=== PATIENT | male | born 1955 | race Two or more races ===

== ENCOUNTER 2019-04-01 20:20 | Inpatient (IN) | payer MEDICAID ==
[~2019-04-01] VITALS: Ht 167.6 cm; Wt 73.0 kg
[2019-04-01] MEDS ORDERED: Thiamine 100 MG/ML VIAL ONE (20:50)
[2019-04-01] MEDS ORDERED: LORAZEPAM INJ 2 MG/ML VIAL ONE (20:51)
[2019-04-01 21:00] LABS: BASOPHILS # (AUTO) 0.1 /CMM (0.0-0.2); BASOPHILS % (AUTO) 1.1 % (0.0-2.0); EOSINOPHILS % (AUTO) 0.1 % (0.0-6.0); HEMATOCRIT 42 % (39-51); HEMOGLOBIN 14.5 g/dL (13.5-17.5); LYMPHOCYTES # (AUTO) 1.1 /CMM (0.8-4.8); LYMPHOCYTES % (AUTO) 19.8 % (20.0-44.0); MEAN CORPUSCULAR HGB CONC 34 g/dl (31.0-36.0); MEAN CORPUSCULAR VOLUME 82 fL (80-96); MONOCYTES # (AUTO) 0.3 /CMM (0.1-1.30); MONOCYTES % (AUTO) 5.6 % (2.0-12.0); NEUTROPHILS # (AUTO) 4.1 /CMM (1.8-8.9); NEUTROPHILS % (AUTO) 73.4 % (43.0-81.0); PLATELET COUNT (AUTO) 95 /CMM (150-450); WHITE BLOOD COUNT (AUTO) 5.6 K/uL (4.3-11.0)
[2019-04-01] MEDS ORDERED: IV NS 0.9% 1,000 ML BAG IV ONE (21:00)
[2019-04-01] MEDS ORDERED: LORAZEPAM INJ 2 MG/ML VIAL IVP ONE (21:00)
[2019-04-01] MEDS ORDERED: Thiamine 100 MG in IV D5W 50 ML IV SCH (21:00)
--- NOTE | 2019-04-01 21:06 | NUR ---
BIBRA39 FROM HOME FOR WITNESSED SEIZURE BY FAMILY, POST ICTAL, CONFUSED, +ORAL TRAUMA, R NOSTRIL BLEEDING NOTED. BG 166 PER EMS. PT RR EVEN & UNLABORED. PT SEEN & EVAL'D BY DR. TY. MEDICATED ORDERED. PLACED ON FARMWORKER FIELD CROP, NSR. WILL CONT TO MONITOR. SISTER @ BS.
[2019-04-01 21:13] LABS: ALANINE AMINOTRANSFERASE 132 U/L (12-78); ALBUMIN 3.8 g/dL (3.4-5.0); ALKALINE PHOSPHATASE 167 U/L (46-116); ASPARTATE AMINOTRANSFERASE 263 U/L (15-37); BILIRUBIN,DIRECT 0.8 mg/dL (0.0-0.2); CALCIUM, SERUM 7.6 mg/dL (8.5-10.1); CARBON DIOXIDE 23 mmol/L (21-32); CREATININE 1.3 mg/dL (0.6-1.3); GLUCOSE 211 mg/dL (74-106); POTASSIUM 3.4 mmol/L (3.5-5.1); TOTAL PROTEIN, SERUM 7.2 g/dL (6.4-8.2); UREA NITROGEN, BLOOD 6 mg/dL (7-18)
[2019-04-01 21:17] LABS: CHLORIDE 71 mmol/L (98-107); SODIUM SERUM 108 mmol/L (136-145)
[2019-04-01 21:18] LABS: ALCOHOL, BLOOD < 3 mg/dL (0-0)
[2019-04-01 21:37] LABS: BAND % (MANUAL) 12 % (0.0-5.0); BASOPHILS % (MANUAL) 2 % (0.0-2.0); LYMPHOCYTES % (MANUAL) 23 % (16-48); MONOCYTES % (MANUAL) 7 % (0-11.0); NEUTROPHILS % (MANUAL) 56 (42-76)
[2019-04-01] MEDS ORDERED: HYDROCODONE/APAP 5/325MG 1 EACH TABLET PO PRN (23:00)
[2019-04-01] MEDS ORDERED: ONDANSETRON HCL/PF 4 MG/2 ML VIAL IVP PRN (23:00)
[2019-04-01] MEDS ORDERED: Z GUARD REMEDY 2 OZ OINT TP PRN (23:00)
[2019-04-01] MEDS ORDERED: MAGNESIUM HYDROXIDE 30 ML UDC PO PRN (23:00)
[2019-04-01] MEDS ORDERED: ACETAMINOPHEN 325 MG TABLET PO PRN (23:00)
--- NOTE | 2019-04-01 23:16 | NUR ---
PT AAOX1, DENIES CP, SOB, DIZZINESS, N/V @ THIS TIME. ON SZ PRECAUTION. NAD NOTED @ THIS TIME. WILL CONT TO MONITOR.
--- NOTE | 2019-04-01 23:25 | NUR ---
REPORT GIVEN TO JORGE ALBERTO CLIFTON FOR BLAYNE
[2019-04-01 23:47] VITALS: BP 165/115
--- NOTE | 2019-04-01 23:50 | NUR ---
SERVER SOFTWARE ENGINEER RCD PT FROM ER SOILED IN URINE; PROVIDED KAR CARE. ST ON MONITOR. ON ROOM AIR. DX SEIZURE; SEIZURE PADS PLACED. CONTINUE TO MONITOR.
[2019-04-01] MEDS: IV NS 0.9% 1,000 ML IV PRN (23:58)
[2019-04-02] VITALS (26 sets, daily range): BP systolic 70–181; BP diastolic 33–99
--- NOTE | 2019-04-02 00:10 | NUR ---
PARTS PICKERSECOND BAKER AT BEDSIDE.
[2019-04-02 04:53] LABS: BASOPHILS % (AUTO) 0.3 % (0.0-2.0); EOSINOPHILS % (AUTO) 0.1 % (0.0-6.0); HEMATOCRIT 43 % (39-51); HEMOGLOBIN 15.1 g/dL (13.5-17.5); LYMPHOCYTES % (AUTO) 13.6 % (20.0-44.0); MEAN CORPUSCULAR HGB CONC 35 g/dl (31.0-36.0); MEAN CORPUSCULAR VOLUME 80 fL (80-96); MONOCYTES # (AUTO) 0.3 /CMM (0.1-1.30); MONOCYTES % (AUTO) 4.8 % (2.0-12.0); NEUTROPHILS # (AUTO) 5.8 /CMM (1.8-8.9); NEUTROPHILS % (AUTO) 81.2 % (43.0-81.0); PLATELET COUNT (AUTO) 73 /CMM (150-450); RED BLOOD CELL COUNT(AUTO) 5.37 MIL/uL (4.5-6.0); WHITE BLOOD COUNT (AUTO) 7.2 K/uL (4.3-11.0)
[2019-04-02 05:10] LABS: CALCIUM, SERUM 7.6 mg/dL (8.5-10.1); CREATININE 0.9 mg/dL (0.6-1.3); MAGNESIUM 1.3 mg/dL (1.8-2.4); PHOSPHORUS 2.8 mg/dL (2.5-4.9); POTASSIUM 3.1 mmol/L (3.5-5.1)
[2019-04-02 05:13] LABS: THYROID STIMULATING HORMONE 0.553 uIU/mL (0.358-3.74)
--- NOTE | 2019-04-02 06:45 | NUR ---
CHIEF ESTIMATOR NO SEIZURE ACTIVITY NOTED. PT REMAINED CONFUSED THROUGHOUT SHIFT.
[2019-04-02] MEDS: CHLORDIAZEPOXIDE HCL 25 MG CAPSULE PO SCH ×2 (08:04→16:55)
[2019-04-02] MEDS: FOLIC ACID 1 MG TABLET PO SCH (08:04)
--- NOTE | 2019-04-02 08:17 | NUR ---
received pt from retail shift leader, alert, follows commands, Faroese speaker, ST, RA sat well, no seizure activity, tolerates diet, v/s stable, no pain, pt turns and repositions by himself.
--- NOTE | 2019-04-02 10:00 | NUR ---
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 no family at bedside. left message to his brother.
[2019-04-02] MEDS: POTASSIUM CHLORIDE 20 MEQ TAB.PRT.SR PO SCH ×2 (11:23→12:41)
[2019-04-02] MEDS: DESMOPRESSIN 4 MCG/ML AMPUL SQ SCH ×2 (11:34→16:55)
--- NOTE | 2019-04-02 11:47 | NUR ---
Social service consult requested by Dr. Veliz for alcohol abuse. Pt. is a 63 year old male who was admitted to [facility] ICU for seizures and Hyponatremia. JASWINDER met with the pt. and his sister bedside. Pt. is alert and oriented x 1. Pt. appears confused. Pt's sister informed JASWINDER that pt. resides with his brother Jihan at [address] [place] [address] in [facility]. Pt. is an alcoholic and has been for several years. Pt. is a binge drinker. Per sister, pt. will start with drinking beer and then drink vodka. Pt. has been binge drinking for the past 3 weeks. Pt' s last drink was four days ago. Pt. has stayed sober for 5 years, 8 years ago. Pt. has no history of attending an alcohol rehab program. Pt. was seen at [facility] 4 days ago in the ED due to abdominal pain but was sent home. JASWINDER gave pt's sister the following list of alcohol rehabilitation programs: [facility], ; [facility]stance Abuse [facility]line and [facility] . No other social service needs are requested at this time. SW is available, if needed.
[2019-04-02] MEDS: Magnesium 1GM/D5W 100ML PREMIX 100 ML IV SCH ×4 (11:52→15:05)
[2019-04-02] MEDS: IV NS 0.9% 1,000 ML IV PRN (13:19)
[2019-04-02] MEDS: MAG HYDROX/AL HYDROX/SIMETH 30 ML UDC PO PRN (13:55)
[2019-04-02] MEDS: IV Sodium Chloride 3% 500 ML 500 ML IV PRN (14:53)
[2019-04-02 15:35] LABS: CREATININE 1.1 mg/dL (0.6-1.3); POTASSIUM 3.1 mmol/L (3.5-5.1)
--- NOTE | 2019-04-02 16:05 | NUR ---
pt is resting in the bed, alert, confused at times, ST, RA, on 3% NS at 30cc/hr, tolerates diet, urinates in diaper, v/s stable, no pain, pt cleaned, changed and repositioned.
[2019-04-02] MEDS: LORAZEPAM INJ 2 MG/ML VIAL IV PRN (16:55)
[2019-04-02 18:28] LABS: CALCIUM, SERUM 6.9 mg/dL (8.5-10.1); CREATININE 1.1 mg/dL (0.6-1.3); POTASSIUM 3.4 mmol/L (3.5-5.1)
--- NOTE | 2019-04-02 19:30 | NUR ---
FINDING FASTENER RCD PT W/DX SEIZURE; PT IS A/O x1 VERY RESTLESS ATTEMPTING TO GET OUT BED. NSR ON MONITOR. SISTER AT BEDSIDE.
--- NOTE | 2019-04-02 20:00 | NUR ---
FACILITIES PLANNER PTS SISTER CAME OUT OF PT ROOM SCREAMING WHERE IS THE PTS NURSE. NO ONE HAS BEEN IN THE ROOM FOR THE PAST HOUR. SISTER SEEMED OVERWHELMED AND EXPRESSED FRUSTRATION THAT THE PT WAS SUCH MESS. SISTER WAS TOLD SHE COULD GO HOME AND NURSING WOULD MONITOR PT. NURSING STAFF HAD BEEN PREVIOUSLY BEEN IN ROOM 3 TIMES AND SISTER WAS SLEEPING WHILE PTS LEGS WERE DANGLING FROM THE BED. CONTINUE TO MONITOR.
--- NOTE | 2019-04-02 20:15 | NUR ---
SPOOL CLEANER HAND PT RESTLESS NOTED WITH INCREASED STRENGTH SITTING UP IN BED AND STATING HE NEEDS TO LEAVE. LOOKING FOR HIS CLOTHES. REORIENTED PT. NURSING AT BEDSIDE AT THIS TIME.
--- NOTE | 2019-04-02 20:30 | NUR ---
BEAD INSPECTOR PT CONTINUES TO BE RESTLESS ATTEMPTING TO GET OUT OF BED. CONTINUE TO MONITOR. NURSING REMAINS AT BEDSIDE. ALL SAFETY MEASURES IN PLACE. BED ALARM ON.
--- NOTE | 2019-04-02 20:45 | NUR ---
PIECE DYEING MACHINE TENDER PT CONTINUES TO BE RESTLESS ATTEMPTING TO GET OUT OF BED. CONTINUE TO MONITOR. NURSING REMAINS AT BEDSIDE. ALL SAFETY MEASURES IN PLACE. BED ALARM ON.
--- NOTE | 2019-04-02 20:55 | NUR ---
CUFF SETTER PT CONTINUES TO BE RESTLESS AND ATTEMPTING TO GET OUT OF BED. MULTIPLE ATTEMPTS TO REORIENT PT; BLSW RESTRAINTS PLACED AT THIS TIME TO PREVENT PT FROM HURTING HIMSELF OR PULLING OUT ANY NECESSARY LINES.
[2019-04-02] MEDS ORDERED: Thiamine 100 MG in IV D5W 50 ML IV SCH (21:00)
--- NOTE | 2019-04-02 21:00 | NUR ---
PRODUCTION BOW MAKER BROTHER AT BEDSIDE; UPDATED ON PLAN OF CARE AND THE NEED FOR BLSW RESTRAINTS. FAMILY VERBALIZED UNDERSTANDING. CONTINUE TO MONITOR.
--- NOTE | 2019-04-02 22:58 | NUR ---
AIRPORT UTILITY WORKER PT SLEEPING; BROTHER REMAINS AT BEDSIDE.
[2019-04-03] VITALS (26 sets, daily range): BP systolic 108–179; BP diastolic 41–101
[2019-04-03] MEDS: DESMOPRESSIN 4 MCG/ML AMPUL SQ SCH ×3 (00:26→17:24)
[2019-04-03] MEDS: LORAZEPAM INJ 2 MG/ML VIAL IV PRN ×2 (00:43→04:44)
--- NOTE | 2019-04-03 00:45 | NUR ---
WORKERS COMPENSATION ADMINISTRATOR PT PULLED OUT IV DESPITE BEING ON RESTRAINTS. FAMILY REQUESTED PT BE GIVEN SOMETHING TO HELP HIM RELAX. ATIVAN 1 MG IVP GIVEN. CONTINUE TO MONITOR.
--- NOTE | 2019-04-03 01:43 | NUR ---
RAILROAD SWITCHMAN PT DISPLAYING AGGRESSIVE BEHAVIOR AT THIS TIME. MAKING FISTS TOWARDS STAFF. ATIVAN INEFFECTIVE. CONTINUE TO MONITOR.
--- NOTE | 2019-04-03 03:55 | NUR ---
SALES/MARKETING PT CONTINUES TO DISPLAY AGGRESSIVE BEHAVIOR. MULTIPLE ATTEMPTS TO GET OUT OF BED. CONSTANTLY REMOVING SP02 SENSOR. RCD ORDER FOR 1:1 SITTER. CONTINUE TO MONITOR.
[2019-04-03 04:25] LABS: BASOPHILS % (AUTO) 0.5 % (0.0-2.0); EOSINOPHILS % (AUTO) 0.6 % (0.0-6.0); HEMATOCRIT 39 % (39-51); HEMOGLOBIN 13.1 g/dL (13.5-17.5); LYMPHOCYTES # (AUTO) 1.4 /CMM (0.8-4.8); LYMPHOCYTES % (AUTO) 22.5 % (20.0-44.0); MEAN CORPUSCULAR HGB CONC 34 g/dl (31.0-36.0); MEAN CORPUSCULAR VOLUME 81 fL (80-96); MONOCYTES # (AUTO) 0.3 /CMM (0.1-1.30); MONOCYTES % (AUTO) 5.6 % (2.0-12.0); NEUTROPHILS # (AUTO) 4.3 /CMM (1.8-8.9); NEUTROPHILS % (AUTO) 70.8 % (43.0-81.0); PLATELET COUNT (AUTO) 60 /CMM (150-450); WHITE BLOOD COUNT (AUTO) 6.1 K/uL (4.3-11.0)
[2019-04-03 04:45] LABS: CALCIUM, SERUM 7.2 mg/dL (8.5-10.1); CREATININE 0.9 mg/dL (0.6-1.3); PHOSPHORUS 1.4 mg/dL (2.5-4.9); POTASSIUM 3.2 mmol/L (3.5-5.1)
[2019-04-03 05:04] LABS: THYROID STIMULATING HORMONE 0.743 uIU/mL (0.358-3.74); URIC ACID 3.9 mg/dL (2.6-7.2)
[2019-04-03 07:18] LABS: LYMPHOCYTES % (MANUAL) 27 % (16-48); MONOCYTES % (MANUAL) 3 % (0-11.0); NEUTROPHILS % (MANUAL) 70 (42-76)
--- NOTE | 2019-04-03 08:15 | NUR ---
received pt from shift mechanic, alert, confused, aggressive at times, restless , SR, RA, diaper on, tolerates diet, sitter at the bedside, on 3% NS, v/s stable, no pain, seen by Jean CORREA.
[2019-04-03] MEDS: CHLORDIAZEPOXIDE HCL 25 MG CAPSULE PO SCH ×2 (09:04→17:25)
[2019-04-03] MEDS: FOLIC ACID 1 MG TABLET PO SCH (09:04)
[2019-04-03] MEDS: IV Sodium Chloride 3% 500 ML 500 ML IV PRN (09:04)
[2019-04-03] MEDS: POTASSIUM CHLORIDE 20 MEQ TAB.PRT.SR PO SCH ×2 (11:24→12:33)
[2019-04-03] MEDS ORDERED: K PHOS NEUTRAL 250 MG TABLET PO ONE (14:00)
--- NOTE | 2019-04-03 16:27 | NUR ---
pt is resting in the bed, alert, confused at times, SR, RA, on 3% NS, v/s stable, no pain, pt cleaned and changed, sitter at the bedside.
[2019-04-03 18:46] LABS: CALCIUM, SERUM 7.2 mg/dL (8.5-10.1); CREATININE 0.9 mg/dL (0.6-1.3); POTASSIUM 3.4 mmol/L (3.5-5.1)
[2019-04-03 18:50] LABS: APPEARANCE,URINE CLEAR (CLEAR); BILIRUBIN,URINE SMALL (NEGATIVE); BLOOD, URINE MODERATE Ery/uL (NEGATIVE); COLOR,URINE YELLOW (YELLOW); KETONES,URINE TRACE (NEGATIVE); LEUKOCYTE ESTERASE ,URINE NEGATIVE (NEGATIVE); NITRITE, URINE NEGATIVE (NEGATIVE); PROTEIN,URINE TRACE mg/dl (NEGATIVE); UGLUCOSE NEGATIVE (NEGATIVE)
[2019-04-03 19:05] LABS: URINE SODIUM, RANDOM 67 mmol/l (40-220)
[2019-04-03 19:06] LABS: BACTERIA,URINE Few /HPF (None Seen); SQUAMOUS EPITHELIAL CELL,UR Few /HPF (None Seen); TRIPLE PHOSPHATE CRYSTAL,UR Few /HPF (None Seen); WBC,URINE 0-2 /HPF (0-3)
[2019-04-03 19:14] LABS: OSMOLALITY,URINE 414 mOS/kg (340-1090)
--- NOTE | 2019-04-03 19:30 | NUR ---
ASSEMBLY WORKER RCD PT W/DX SEIZURE; PT IS A/O x2. ON ROOM AIR. NO DISTRESS NOTED AT THIS TIME. NSR ON MONITOR. 1:1 SITTER AT BEDSIDE FOR SAFETY.
[2019-04-03] MEDS: THIAMINE HCL 100 MG TABLET PO SCH (21:51)
[2019-04-04] VITALS (24 sets, daily range): BP systolic 94–154; BP diastolic 58–102
[2019-04-04] MEDS: IV Sodium Chloride 3% 500 ML 500 ML IV PRN ×2 (01:59→16:29)
--- NOTE | 2019-04-04 04:00 | NUR ---
ACQUISITION ADVISOR NOTED CHANGE IN PT BEHAVIOR; AGITATED AND ATTEMPTING TO GET OUT OF BED. NOT FOLLOWING DIRECTIONS AT THIS TIME. SITTER REMAINS AT BEDSIDE.
[2019-04-04] MEDS: LORAZEPAM INJ 2 MG/ML VIAL IV PRN (04:44)
--- NOTE | 2019-04-04 04:45 | NUR ---
ENAMEL BURNER PT W/INCREASED AGITATION DESPITE FREQUENT REORIENTATION PT ATTEMPTING TO GET OUT OF BED AND ATTEMPTING TO PULL OUT NECESSARY LINES. ATIVAN 1 MG IVP GIVEN AT THIS TIME. CONTINUE TO MONITOR.
[2019-04-04 05:01] LABS: BASOPHILS % (AUTO) 0.4 % (0.0-2.0); EOSINOPHILS % (AUTO) 1.6 % (0.0-6.0); HEMATOCRIT 35 % (39-51); HEMOGLOBIN 11.9 g/dL (13.5-17.5); LYMPHOCYTES # (AUTO) 1.2 /CMM (0.8-4.8); LYMPHOCYTES % (AUTO) 28.5 % (20.0-44.0); MEAN CORPUSCULAR HGB CONC 34 g/dl (31.0-36.0); MEAN CORPUSCULAR VOLUME 81 fL (80-96); MONOCYTES # (AUTO) 0.2 /CMM (0.1-1.30); MONOCYTES % (AUTO) 5.6 % (2.0-12.0); NEUTROPHILS # (AUTO) 2.7 /CMM (1.8-8.9); NEUTROPHILS % (AUTO) 63.9 % (43.0-81.0); PLATELET COUNT (AUTO) 62 /CMM (150-450); RED BLOOD CELL COUNT(AUTO) 4.31 MIL/uL (4.5-6.0); WHITE BLOOD COUNT (AUTO) 4.2 K/uL (4.3-11.0)
[2019-04-04 05:24] LABS: CALCIUM, SERUM 7.4 mg/dL (8.5-10.1); CREATININE 0.8 mg/dL (0.6-1.3); PHOSPHORUS 1.9 mg/dL (2.5-4.9); POTASSIUM 2.9 mmol/L (3.5-5.1)
[2019-04-04 05:43] LABS: LYMPHOCYTES % (MANUAL) 24 % (16-48); MONOCYTES % (MANUAL) 4 % (0-11.0); NEUTROPHILS % (MANUAL) 72 (42-76)
--- NOTE | 2019-04-04 05:54 | NUR ---
INCINERATOR PLANT GENERAL SUPERVISOR PT REMAINS AGITATED LOOKING FOR A BEER. UNABLE TO REORIENT PT AT THIS TIME. SITTER REMAINS AT BEDSIDE. VSS.
[2019-04-04] MEDS: DESMOPRESSIN 4 MCG/ML AMPUL SQ SCH ×2 (06:18→17:01)
[2019-04-04] MEDS: FOLIC ACID 1 MG TABLET PO SCH (08:05)
[2019-04-04] MEDS: CHLORDIAZEPOXIDE HCL 25 MG CAPSULE PO SCH ×2 (08:05→16:39)
[2019-04-04] MEDS: THIAMINE HCL 100 MG TABLET PO SCH (08:05)
--- NOTE | 2019-04-04 08:28 | NUR ---
received pt from assistant casino shift manager, alert, confused and restless at times, tries to get out of bed, sitter at the bedside, SR, RA, on 3% NS, tolerates diet, urinates in urinal, v/s stable, no pain, pt turns and repositions by himself.
[2019-04-04] MEDS ORDERED: K PHOS NEUTRAL 250 MG TABLET PO ONE (10:00)
[2019-04-04] MEDS ORDERED: POTASSIUM CHLORIDE 20 MEQ TAB.PRT.SR PO SCH (10:00)
--- NOTE | 2019-04-04 16:14 | NUR ---
pt is resting in the bed, alert, follows commands, SR, RA, on 3% NS, v/s stable, no pain, pt cleaned and changed.
[2019-04-04 18:19] LABS: CALCIUM, SERUM 7.4 mg/dL (8.5-10.1); CREATININE 0.8 mg/dL (0.6-1.3); POTASSIUM 3.3 mmol/L (3.5-5.1)
[2019-04-04] MEDS: ZOLPIDEM TARTRATE 5 MG TABLET PO PRN (23:00)
[2019-04-05] VITALS (20 sets, daily range): BP systolic 90–154; BP diastolic 51–94
[2019-04-05 04:27] LABS: BASOPHILS % (AUTO) 0.8 % (0.0-2.0); EOSINOPHILS % (AUTO) 3.4 % (0.0-6.0); HEMATOCRIT 31 % (39-51); HEMOGLOBIN 10.6 g/dL (13.5-17.5); LYMPHOCYTES # (AUTO) 1.3 /CMM (0.8-4.8); LYMPHOCYTES % (AUTO) 34.8 % (20.0-44.0); MEAN CORPUSCULAR HGB CONC 34 g/dl (31.0-36.0); MEAN CORPUSCULAR VOLUME 82 fL (80-96); MONOCYTES # (AUTO) 0.3 /CMM (0.1-1.30); MONOCYTES % (AUTO) 8.8 % (2.0-12.0); NEUTROPHILS % (AUTO) 52.2 % (43.0-81.0); PLATELET COUNT (AUTO) 73 /CMM (150-450); WHITE BLOOD COUNT (AUTO) 3.8 K/uL (4.3-11.0)
[2019-04-05 05:12] LABS: CALCIUM, SERUM 7.6 mg/dL (8.5-10.1); CREATININE 0.6 mg/dL (0.6-1.3); PHOSPHORUS 2.8 mg/dL (2.5-4.9); POTASSIUM 3.5 mmol/L (3.5-5.1)
--- NOTE | 2019-04-05 06:38 | NUR ---
RN NOTES IN BED, COMFORTABLY RESTING WITH NO DISTRESS NOTED. BREATHING EVEN AND UNLABORED. NO COMPLAINT OF PAIN OR DISCOMFORT. VERBALIZED HE IS FEELS A LOT BETTER NOW THAN YESTERDAY. NEEDS ATTENDED. NO EPISODE OF SEIZURE. KEPT CLEAN AND DRY. WILL ENDORSE TO NEXT SHIFT FOR CONTINUITY OF CARE.
--- NOTE | 2019-04-05 08:00 | NUR ---
ICU/RN AM SHIFT INITIAL NOTES RECEIVED PT ASLEEP IN BED, EASILY AROUSED, PT A/O X 1-2 WITH EPISODES OF CONFUSION, FOLLOWS COMMANDS, FRENCH SPEAKING, DENIES ANY SYMPTOMS, NO ACUTE CHANGE OF CONDITION NOTED. ON ROOM AIR SATURATING @ 97%, LUNG SOUNDS CLEAR, RESPIRATIONS EVEN & UNLABORED. ON TELE WITH SINUS RHYTHM, HR 88. PT WITH ON GOING IV INFUSION OF 3%NS @ 30CC/HR, IV SITE FLUSHED, PATENT WITH NO S/S OF INFECTION. PT IS COMFORTABLE, SCHEDULED AM MEDS TO BE GIVEN. CL WITHIN REACHED, SAFETY MAINTAINED AND SEIZURE PRECAUTION OBSERVED. ON GOING MONITORING.
[2019-04-05] MEDS: DESMOPRESSIN 4 MCG/ML AMPUL SQ SCH ×2 (08:10→17:00)
[2019-04-05] MEDS: THIAMINE HCL 100 MG TABLET PO SCH (08:10)
[2019-04-05] MEDS: CHLORDIAZEPOXIDE HCL 25 MG CAPSULE PO SCH ×2 (08:10→17:00)
[2019-04-05] MEDS: FOLIC ACID 1 MG TABLET PO SCH (08:13)
[2019-04-05] MEDS: IV Sodium Chloride 3% 500 ML 500 ML IV PRN (10:31)
--- NOTE | 2019-04-05 11:15 | NUR ---
ICU/RN ROUNDS - MADELINE GARCIA UPDATED PT'S CONDITION, PT SEEN & EXAMINED BY MADELINE GARCIA, PER DRILL PRESS SET UP OPERATOR RADIAL PT WILL BE DOWNGRADED TO MANOLO. NOTED, CONTINUED MONITORING.
[2019-04-05] MEDS: FAMOTIDINE (20 MG) 20 MG TABLET PO SCH ×2 (11:37→20:55)
[2019-04-05] MEDS ORDERED: POLYVINYL ALCOHOL 15 ML BOTTLE EACHEYE PRN (12:00)
--- NOTE | 2019-04-05 19:26 | NUR ---
TD/RN AM SHIFT END NOTES ALL NEEDS MET. NO ACUTE CHANGE OF CONDITION DURING THE SHIFT. PT ENDORSED TO PM NURSE TO CONTINUE CARE. CL WITHIN REACHED AND SAFETY MAINTAINED.
[2019-04-05] MEDS: ZOLPIDEM TARTRATE 5 MG TABLET PO PRN (20:56)
[2019-04-06] VITALS (7 sets, daily range): BP systolic 124–149; BP diastolic 66–87
[2019-04-06] MEDS: IV Sodium Chloride 3% 500 ML 500 ML IV PRN ×2 (01:58→18:36)
[2019-04-06] MEDS: DESMOPRESSIN 4 MCG/ML AMPUL SQ SCH ×2 (06:00→17:46)
[2019-04-06 06:45] LABS: BASOPHILS % (AUTO) 0.7 % (0.0-2.0); EOSINOPHILS % (AUTO) 3.6 % (0.0-6.0); HEMATOCRIT 30 % (39-51); HEMOGLOBIN 10.4 g/dL (13.5-17.5); LYMPHOCYTES # (AUTO) 1.7 /CMM (0.8-4.8); LYMPHOCYTES % (AUTO) 42.8 % (20.0-44.0); MEAN CORPUSCULAR HGB CONC 34 g/dl (31.0-36.0); MEAN CORPUSCULAR VOLUME 82 fL (80-96); MONOCYTES # (AUTO) 0.5 /CMM (0.1-1.30); MONOCYTES % (AUTO) 13.8 % (2.0-12.0); NEUTROPHILS # (AUTO) 1.6 /CMM (1.8-8.9); NEUTROPHILS % (AUTO) 39.1 % (43.0-81.0); PLATELET COUNT (AUTO) 107 /CMM (150-450)
[2019-04-06 07:15] LABS: CALCIUM, SERUM 7.2 mg/dL (8.5-10.1); CREATININE 0.7 mg/dL (0.6-1.3); POTASSIUM 3.1 mmol/L (3.5-5.1)
--- NOTE | 2019-04-06 07:30 | NUR ---
RN Note: Received patient in bed. Nurse rounds completed. Patient alert and oriented without complaints of pain. Safety measures in place. Call light within reach. IV site patent, clean, dry and intact.
[2019-04-06] MEDS: THIAMINE HCL 100 MG TABLET PO SCH (09:12)
[2019-04-06] MEDS: FAMOTIDINE (20 MG) 20 MG TABLET PO SCH ×2 (09:12→21:32)
[2019-04-06] MEDS: CHLORDIAZEPOXIDE HCL 25 MG CAPSULE PO SCH ×2 (09:12→16:42)
[2019-04-06] MEDS: FOLIC ACID 1 MG TABLET PO SCH (09:12)
[2019-04-06] MEDS: POTASSIUM CHLORIDE 20 MEQ TAB.PRT.SR PO SCH ×2 (12:28→13:10)
[2019-04-06] MEDS: MAG HYDROX/AL HYDROX/SIMETH 30 ML UDC PO PRN (12:28)
--- NOTE | 2019-04-06 19:30 | NUR ---
ORNITHOLOGY TEACHER NOTE: RECEIVED PT ON BED ASLEEP BUT AROUSES EASILY TO VERBAL AND TACTILE STIMULI. NO ACUTE DISTRESS NOTED. DENIES PAIN AND DISCOMFORT AT THIS TIME. ON ROOM AIR, BREATHING EVEN AND UNLABORED WITH NORMAL RESPIRATIONS. SINUS RHYTHM ON TELE MONITOR HR 89BPM. IV ON LEFT FOREARM #22 INTACT AND PATENT RUNNING 3% NS AT 35ML/HR. NO SIGNS/SYMPTOMS OF INFILTRATION NOTED. KEPT CLEAN, DRY AND COMFORTABLE. CALL LIGHT PLACED WITHIN REACH. SAFETY AND FALL PRECAUTIONS OBSERVED AND MAINTAINED. WILL CONTINUE TO MONITOR PT
[2019-04-07] VITALS (7 sets, daily range): BP systolic 101–154; BP diastolic 62–87
[2019-04-07] MEDS: DESMOPRESSIN 4 MCG/ML AMPUL SQ SCH (05:05)
--- NOTE | 2019-04-07 06:46 | NUR ---
EXPLOSIVE ORDNANCE HANDLER NOTE: NO CHANGES NOTED THROUGHOUT THE SHIFT. NO APPARENT DISTRESS NOTED. DENIES PAIN AND DISCOMFORT AT THIS TIME. ON TELE MONITOR SINUS RHYTHM HR 63 BPM. IV ON LEFT FOREARM #22 INTACT AND PATENT, IVF INFUSING WELL. KEPT CLEAN, DRY AND COMFORTABLE. SAFETY AND FALL PRECAUTIONS OBSERVED AND MAINTAINED. CALL LIGHT PLACED WITHIN REACH. WILL ENDORSE TO DAY SHIFT RN FOR CONTINUITY OF CARE
[2019-04-07 07:06] LABS: BASOPHILS % (AUTO) 0.7 % (0.0-2.0); EOSINOPHILS % (AUTO) 3.4 % (0.0-6.0); HEMATOCRIT 30 % (39-51); HEMOGLOBIN 10.1 g/dL (13.5-17.5); LYMPHOCYTES # (AUTO) 1.3 /CMM (0.8-4.8); LYMPHOCYTES % (AUTO) 38.8 % (20.0-44.0); MEAN CORPUSCULAR HGB CONC 34 g/dl (31.0-36.0); MEAN CORPUSCULAR VOLUME 83 fL (80-96); MONOCYTES # (AUTO) 0.5 /CMM (0.1-1.30); MONOCYTES % (AUTO) 15.9 % (2.0-12.0); NEUTROPHILS # (AUTO) 1.4 /CMM (1.8-8.9); NEUTROPHILS % (AUTO) 41.2 % (43.0-81.0); PLATELET COUNT (AUTO) 154 /CMM (150-450); RED BLOOD CELL COUNT(AUTO) 3.63 MIL/uL (4.5-6.0); WHITE BLOOD COUNT (AUTO) 3.5 K/uL (4.3-11.0)
[2019-04-07 07:47] LABS: ALBUMIN 2.4 g/dL (3.4-5.0); BILIRUBIN,TOTAL 0.6 mg/dL (0.2-1.0); CALCIUM, SERUM 7.7 mg/dL (8.5-10.1); CREATININE 0.7 mg/dL (0.6-1.3); MAGNESIUM 1.4 mg/dL (1.8-2.4); PHOSPHORUS 2.6 mg/dL (2.5-4.9); POTASSIUM 3.7 mmol/L (3.5-5.1); TOTAL PROTEIN, SERUM 5.1 g/dL (6.4-8.2)
--- NOTE | 2019-04-07 07:56 | NUR ---
RN OPENING NOTES RECEIVED PATIENT RESTING IN BED COMFORTABLY. HE IS AOX3, PANAMANIAN SPEAK (UNDERSTANDS SOME BENGALI) AND IS AMBULATORY. HE IS ON RA, TOLERATING WELL, NO S/SX OF RESP DISTRESS OR SOB. TELE MONITOR SHOWING SR. SKIN IS INTACT. PT IS ON 900 ML/HR FLUID RESTRICTION, VERBALIZED UNDERSTANDING. HE IS ON REGULAR DIET. LFA 22G IS PATENT AND INTACT,3% NS HAS BEEN DC. SAFETY MEASURES HAVE BEEN IMPLEMENTED, CALL LIGHT IS WITHIN REACH, BED IS IN LOWEST AND LOCKED POSITION, SIDE RAILS UP X2, WILL CONTINUE TO MONITOR FOR ANY CHANGES.
[2019-04-07 08:01] LABS: EOSINOPHILS % (MANUAL) 5 % (0-4); LYMPHOCYTES % (MANUAL) 40 % (16-48); MONOCYTES % (MANUAL) 11 % (0-11.0); MYELOCYTES % 1 % (0-0); NEUTROPHILS % (MANUAL) 43 (42-76)
[2019-04-07] MEDS: FOLIC ACID 1 MG TABLET PO SCH (08:25)
[2019-04-07] MEDS: THIAMINE HCL 100 MG TABLET PO SCH (08:25)
[2019-04-07] MEDS: CHLORDIAZEPOXIDE HCL 25 MG CAPSULE PO SCH ×2 (08:25→16:17)
[2019-04-07] MEDS: FAMOTIDINE (20 MG) 20 MG TABLET PO SCH ×2 (08:25→21:10)
[2019-04-07] MEDS: Magnesium 1GM/D5W 100ML PREMIX 100 ML IV SCH ×4 (10:10→14:01)
[2019-04-07 13:51] LABS: CALCIUM, SERUM 7.7 mg/dL (8.5-10.1); CREATININE 0.8 mg/dL (0.6-1.3); POTASSIUM 3.8 mmol/L (3.5-5.1)
--- NOTE | 2019-04-07 19:35 | NUR ---
PATIENT IS RESTING COMFORTABLY IN BED AT THIS TIME. NO ACUTE CHANGES OCCURRED THROUGHOUT THE SHIFT, VITAL SIGNS ARE STABLE, PT NEEDS HAVE BEEN MET. SAFETY MEASURES HAVE BEEN IMPLEMENTED, CALL LIGHT IS WITHIN REACH, BED IS IN LOWEST AND LOCKED POSITION, SIDE RAILS UP X2. PT HAS BEEN ENDORSED TO NIGHTSHIFT RN FOR CONTINUITY OF CARE.
--- NOTE | 2019-04-07 20:23 | NUR ---
recieved in bed alert and orientated x3 family at the bedside and attentive to his needs. patient smiling and talking with the family. stands to void, steady on his legs call light within reach
[2019-04-08] VITALS: BP 114/71
[2019-04-08] MEDS: ZOLPIDEM TARTRATE 5 MG TABLET PO PRN (01:10)
[2019-04-08 05:21] VITALS: BP 140/70
--- NOTE | 2019-04-08 05:23 | NUR ---
ENDING NOTES: FAMILY CAME TO VISIT HIM EARLY IN THE EVENING AND WERE ATTENTIVE TO HIS CARE. HE IS ALERT AND ORIENTATED X3. THIS AM HE REQUISTED WE LET HIM GO TO THE [facility] STORE AND GET A CUP OF COFFEE AND HE WOULD COME RIGHT BACK. HE IS FRIENDLY AND SMILES. HE FOLLOW DIRECTIONS STEADY GAIT NO SOB
[2019-04-08 07:35] LABS: BASOPHILS # (AUTO) 0.1 /CMM (0.0-0.2); BASOPHILS % (AUTO) 1.3 % (0.0-2.0); EOSINOPHILS % (AUTO) 3.1 % (0.0-6.0); HEMATOCRIT 29 % (39-51); HEMOGLOBIN 9.8 g/dL (13.5-17.5); LYMPHOCYTES # (AUTO) 1.4 /CMM (0.8-4.8); LYMPHOCYTES % (AUTO) 30.2 % (20.0-44.0); MEAN CORPUSCULAR HGB CONC 34 g/dl (31.0-36.0); MEAN CORPUSCULAR VOLUME 83 fL (80-96); MONOCYTES # (AUTO) 0.9 /CMM (0.1-1.30); MONOCYTES % (AUTO) 20.7 % (2.0-12.0); NEUTROPHILS % (AUTO) 44.7 % (43.0-81.0); PLATELET COUNT (AUTO) 227 /CMM (150-450); RED BLOOD CELL COUNT(AUTO) 3.51 MIL/uL (4.5-6.0); WHITE BLOOD COUNT (AUTO) 4.5 K/uL (4.3-11.0)
--- NOTE | 2019-04-08 07:43 | NUR ---
COMMERCIAL BAKER HELPER OPENING NOTE RECEIVED REPORT FROM NOC SHIFT NURSE. PT AWAKE IN BED, ALERT AND ORIENTED X 1, ARMENIAN SPEAKING, ON ROOM AIR, SATURATING WELL, RESPIRATIONS EVEN AND UNLABORED, NO SIGNS OF RESPIRATORY DISTRESS NOTED. IV SITE ON LEFT FOREARM INTACT, PATENT WITH HEP LOCK IN PLACE. SINUS RHYTHM ON WARRANTY ADMINISTRATOR. BED IN LOW POSITION, LOCKED, CALL LIGHT WITHIN REACH.
[2019-04-08 07:53] LABS: CALCIUM, SERUM 8.1 mg/dL (8.5-10.1); CREATININE 0.8 mg/dL (0.6-1.3); MAGNESIUM 1.7 mg/dL (1.8-2.4); PHOSPHORUS 3.5 mg/dL (2.5-4.9)
[2019-04-08 08:00] VITALS: BP 125/79
[2019-04-08] MEDS: THIAMINE HCL 100 MG TABLET PO SCH (08:16)
[2019-04-08] MEDS: FAMOTIDINE (20 MG) 20 MG TABLET PO SCH (08:16)
[2019-04-08] MEDS: FOLIC ACID 1 MG TABLET PO SCH (08:16)
[2019-04-08] MEDS: CHLORDIAZEPOXIDE HCL 25 MG CAPSULE PO SCH (08:18)
[2019-04-08 08:33] LABS: EOSINOPHILS % (MANUAL) 2 % (0-4); LYMPHOCYTES % (MANUAL) 43 % (16-48); MONOCYTES % (MANUAL) 16 % (0-11.0); NEUTROPHILS % (MANUAL) 39 (42-76)
[2019-04-08] MEDS: Magnesium 1GM/D5W 100ML PREMIX 100 ML IV SCH ×2 (11:05→12:05)
--- NOTE | 2019-04-08 11:46 | NUR ---
PT REMOVED HIS IV. APPLIED DRESSING. INSERTED NEW IV INTO LEFT AC G22.
[2019-04-08 12:00] VITALS: BP 119/67
[2019-04-08] MEDS ORDERED: LORA-259 PO (12:42)
[2019-04-08] MEDS ORDERED: Folic Acid PO (12:42)
[2019-04-08] MEDS ORDERED: CHLO25CA22 PO (12:42)
[2019-04-08] MEDS ORDERED: MAGN400T8 PO (12:42)
[2019-04-08] MEDS ORDERED: THIA100T70 PO (12:42)
--- NOTE | 2019-04-08 14:55 | NUR ---
REMOVED IV FROM LEFT AC, APPLIED DRESSING. ALL BELONGINGS ACCOUNTED FOR, VALUABLES FORM SIGNED. DISCHARGE PAPERWORK EXPLAINED, PRESCRIPTION EXPLAINED. PT LEFT ACCOMPANIES BY BROTHER IN STABLE CONDITION AT 14:55.
== END 2019-04-08 14:55 | disposition home or self-care (01) | DRG 426 ==
LOC: ER 20:31 → EDBD 20:31 → ICU 23:02 → TELE-TD 04-05 15:52 → TELE1 04-06 14:34
PROVIDERS: ADMIT Student in an Organized Health Care Education/Training Program; ATTEND Nurse Practitioner Acute Care
DX: E87.1 Hypo-osmolality and hyponatremia (principal); G92 Toxic encephalopathy; F10.231 Alcohol dependence with withdrawal delirium; D61.818 Other pancytopenia; E44.0 Moderate protein-calorie malnutrition; D69.6 Thrombocytopenia, unspecified; I95.9 Hypotension, unspecified; E66.01 Morbid (severe) obesity due to excess calories; E83.39 Other disorders of phosphorus metabolism; G31.2 Degeneration of nervous system due to alcohol; E83.42 Hypomagnesemia; R56.9 Unspecified convulsions; E87.6 Hypokalemia; Y90.0 Blood alcohol level of less than 20 mg/100 ml; E51.2 Wernicke's encephalopathy; E88.09 Other disorders of plasma-protein metabolism, not elsewhere classified; Z68.26 Body mass index [BMI] 26.0-26.9, adult; R74.0 Nonspecific elevation of levels of transaminase and lactic acid dehydrogenase [LDH]; I70.90 Unspecified atherosclerosis; R40.2142 Coma scale, eyes open, spontaneous, at arrival to emergency department; R40.2252 Coma scale, best verbal response, oriented, at arrival to emergency department; R40.2362 Coma scale, best motor response, obeys commands, at arrival to emergency department; R73.9 Hyperglycemia, unspecified
CPT/HCPCS: 36415; 70450-TC; 80048-TC; 80053-TC; 80061-TC; 80076-TC; 80305; 81000-TC; 82962-TC; 83735-TC; 83935-TC; 84100-TC; 84295-TC; 84300-TC; 84443-TC; 84550-TC; 85025-TC; 87081-TC; G0378; G0480; J2060; J2597; J3411; J3475; J3490; J7030; J7060

== ENCOUNTER 2019-12-10 17:52 | Inpatient (IN) | payer MEDICAID ==
[~2019-12-10] VITALS: Ht 167.6 cm; Wt 72.6 kg
[~2019-12-10 17:52] MED LIST: CHLO25CA22 PO; Folic Acid PO; LORA-259 PO; MAGN400T8 PO; ONDANSETRON HCL/PF 4 MG/2 ML VIAL ONE; THIA100T70 PO
--- NOTE | 2019-12-10 17:52 | NUR ---
BIBRA39 HOME FOR WITNESSED SEIZURE BY . LAST ETOH YESTERDAY. BG 164. +ORAL TRAUMA. TO ER BED 9, HOOKED TO MONITOR AND POX, CHANGED TO HOSP GOWN, WARM BLANKET PROVIDED, PATIENT AAO x 4, BREATHING EVEN AND UNLABORED, DR ROPER AT BEDSIDE
[2019-12-10] MEDS ORDERED: LORAZEPAM INJ 2 MG/ML VIAL ONE (17:53)
--- NOTE | 2019-12-10 17:55 | NUR ---
SEIZURE PRECAUTIONS APPLIED
[2019-12-10] MEDS ORDERED: LORAZEPAM INJ 2 MG/ML VIAL IV ONE (18:00)
[2019-12-10] MEDS ORDERED: ONDANSETRON HCL/PF 4 MG/2 ML VIAL IVP ONE (18:00)
[2019-12-10] MEDS ORDERED: IV NS 0.9% 1,000 ML BAG IV ONE (18:00)
[2019-12-10 18:11] LABS: BASOPHILS % (AUTO) 0.4 % (0.0-2.0); HEMATOCRIT 42 % (39-51); HEMOGLOBIN 13.9 g/dL (13.5-17.5); LYMPHOCYTES # (AUTO) 0.6 /CMM (0.8-4.8); LYMPHOCYTES % (AUTO) 10.1 % (20.0-44.0); MEAN CORPUSCULAR HGB CONC 34 g/dl (31.0-36.0); MEAN CORPUSCULAR VOLUME 85 fL (80-96); MONOCYTES # (AUTO) 0.4 /CMM (0.1-1.30); MONOCYTES % (AUTO) 6.3 % (2.0-12.0); NEUTROPHILS # (AUTO) 5.1 /CMM (1.8-8.9); NEUTROPHILS % (AUTO) 83.2 % (43.0-81.0); RED BLOOD CELL COUNT(AUTO) 4.89 MIL/uL (4.5-6.0); WHITE BLOOD COUNT (AUTO) 6.1 K/uL (4.3-11.0)
[2019-12-10 18:38] LABS: ALANINE AMINOTRANSFERASE 114 U/L (12-78); ALBUMIN 3.7 g/dL (3.4-5.0); ALCOHOL, BLOOD < 3 mg/dL (0-0); ALKALINE PHOSPHATASE 91 U/L (46-116); ASPARTATE AMINOTRANSFERASE 154 U/L (15-37); BILIRUBIN,DIRECT 0.5 mg/dL (0.0-0.2); BILIRUBIN,TOTAL 1.3 mg/dL (0.2-1.0); CALCIUM, SERUM 7.5 mg/dL (8.5-10.1); CARBON DIOXIDE 19 mmol/L (21-32); CREATININE 1.1 mg/dL (0.6-1.3); GLUCOSE 209 mg/dL (74-106); SODIUM SERUM 123 mmol/L (136-145); TOTAL PROTEIN, SERUM 7.1 g/dL (6.4-8.2); UREA NITROGEN, BLOOD 9 mg/dL (7-18)
[2019-12-10 18:39] LABS: POTASSIUM 2.5 mmol/L (3.5-5.1)
[2019-12-10 18:40] LABS: CHLORIDE 80 mmol/L (98-107)
--- NOTE | 2019-12-10 18:55 | NUR ---
MAG 1.1 FROM STAT LAB
[2019-12-10] MEDS ORDERED: POTASSIUM CHLORIDE 20 MEQ TAB.PRT.SR PO ONE ×2 (19:00→19:20)
[2019-12-10 19:06] LABS: BAND % (MANUAL) 1 % (0.0-5.0); LYMPHOCYTES % (MANUAL) 8 % (16-48); MONOCYTES % (MANUAL) 8 % (0-11.0); NEUTROPHILS % (MANUAL) 83 (42-76)
[2019-12-10 19:09] LABS: PLATELET COUNT (AUTO) 95 /CMM (150-450)
--- NOTE | 2019-12-10 19:12 | NUR ---
PANEL PAGED PER DR ROPER.
--- NOTE | 2019-12-10 19:28 | NUR ---
TOOK OVER PT CARE. PT AAOX3. EAST TIMOR[place] SPEAKING. PALCED IN BED 9 ON MONITOR AND PULSE OX. ABLE TO FOLLOW COMMANDS. NO ACUTE DISTRESS NOTED.
[2019-12-10] MEDS ORDERED: CHLORDIAZEPOXIDE HCL 25 MG CAPSULE PO ONE (19:30)
--- NOTE | 2019-12-10 19:38 | NUR ---
AWAITING PT TO PROVIDE URINE SAMPLE.
[2019-12-10] MEDS ORDERED: CHLORDIAZEPOXIDE HCL 25 MG CAPSULE ONE (19:46)
[2019-12-10] MEDS ORDERED: LORAZEPAM INJ 2 MG/ML VIAL IV PRN (20:00)
[2019-12-10] MEDS ORDERED: ZOLPIDEM TARTRATE 5 MG TABLET PO PRN (20:00)
[2019-12-10] MEDS ORDERED: ACETAMINOPHEN 325 MG TABLET PO PRN (20:00)
[2019-12-10] MEDS ORDERED: MAGNESIUM HYDROXIDE 30 ML UDC PO PRN (20:00)
[2019-12-10] MEDS ORDERED: ONDANSETRON HCL/PF 4 MG/2 ML VIAL IVP PRN (20:00)
--- NOTE | 2019-12-10 20:09 | NUR ---
PT ASLEEP. VSS.
--- NOTE | 2019-12-10 20:14 | NUR ---
REPORT GIVEN TO ENEIDA AZUL FOR BLAYNE
--- NOTE | 2019-12-10 20:47 | NUR ---
PT REPORTED HE DOES NOT TAKE ANY MEDS.
[2019-12-10 21:00] VITALS: BP 150/89
[2019-12-10] MEDS ORDERED: CHLORDIAZEPOXIDE HCL 25 MG CAPSULE PO SCH (21:00)
--- NOTE | 2019-12-10 21:00 | NUR ---
TELE/RN NEW ADMISSION ORDER RECEIVED PATIENT ON A GURNEY FROM ER, ALERT X2, ROMANSH SPEAKING MALE WITH ALCOHOL INTOXICATION. AND SX WITH SEIZURE. RESPIRATIONS EVEN AND UNLABORED, CAN NOD AND COOPERATE WITH CARE, REQUIRE ASSISTANCE FOR SAFETY, MONITORING FOR ANY S/S OF VOMITING, WITH NEED TO REPLACE MAGNESIUM, BELONGINGS CHECKED, UNABLE TO PROVIDE MORE EDUCATION PATIENT IS PASSIVE BUT PROVIDE SIMPLE INSTRUCTION FOR SAFETY. NO VOMITING AT THIS TIME, SKIN INTACT, WILL MONITOR.BED LOCKED, CALL LIGHTS WITHIN REACH.
--- NOTE | 2019-12-10 21:02 | NUR ---
PT TRANSFERED PER ACLS PROTOCOL
[2019-12-10 21:10] VITALS: BP 150/89
[2019-12-10] MEDS: Magnesium 1GM/D5W 100ML PREMIX 100 ML IV SCH ×2 (21:49→22:53)
[2019-12-10] MEDS: PANTOPRAZOLE 40 MG TABLET.DR PO SCH (21:49)
[2019-12-10] MEDS: IV NS 0.9% 1,000 ML IV PRN (21:49)
[2019-12-10] MEDS: FOLIC ACID 1 MG TABLET PO SCH (21:50)
[2019-12-11] VITALS: BP 156/89
[2019-12-11] MEDS: Magnesium 1GM/D5W 100ML PREMIX 100 ML IV SCH (00:05)
[2019-12-11 00:38] LABS: CALCIUM, SERUM 7.7 mg/dL (8.5-10.1); CREATININE 0.8 mg/dL (0.6-1.3)
[2019-12-11 00:42] LABS: POTASSIUM 2.8 mmol/L (3.5-5.1)
--- NOTE | 2019-12-11 00:55 | NUR ---
TELE/RN NOTES MD AWARE REGARDING LATEST RESULT OF POTASSIUM LEVEL OF 2.8 WITH NEW ORDER FOR 40 MEQ K DUR PO . ORDER CARRIED OUT.
[2019-12-11] MEDS ORDERED: POTASSIUM CHLORIDE 20 MEQ TAB.PRT.SR PO ONE ×2 (01:00→13:00)
[2019-12-11 04:00] VITALS: BP 134/99
[2019-12-11] MEDS: CHLORDIAZEPOXIDE HCL 25 MG CAPSULE PO SCH ×3 (04:07→20:37)
--- NOTE | 2019-12-11 04:13 | NUR ---
TELE/RN NOTES PATIENT REQUIRE ZOFRAN, REPORTED OBSERVE VOMITING. TO RELIEVE DISCOMFORT, NEEDED ZOFRAN IVP GIVEN MONITORING.
--- NOTE | 2019-12-11 05:55 | NUR ---
RE CHECKED BODY TEMPERATURE AT 99.9 DEG F. Addendum: 12/11/19 at 0556 by KAYLYN MCKEON RN PLS DISREGARD FOR ANOTHER PATIENT.
[2019-12-11 06:30] LABS: BASOPHILS % (AUTO) 0.2 % (0.0-2.0); EOSINOPHILS % (AUTO) 0.2 % (0.0-6.0); HEMATOCRIT 47 % (39-51); HEMOGLOBIN 15.8 g/dL (13.5-17.5); LYMPHOCYTES # (AUTO) 0.8 /CMM (0.8-4.8); LYMPHOCYTES % (AUTO) 14.4 % (20.0-44.0); MEAN CORPUSCULAR HGB CONC 34 g/dl (31.0-36.0); MEAN CORPUSCULAR VOLUME 83 fL (80-96); MONOCYTES # (AUTO) 0.5 /CMM (0.1-1.30); MONOCYTES % (AUTO) 8.7 % (2.0-12.0); NEUTROPHILS # (AUTO) 4.1 /CMM (1.8-8.9); NEUTROPHILS % (AUTO) 76.5 % (43.0-81.0); PLATELET COUNT (AUTO) 81 /CMM (150-450); RED BLOOD CELL COUNT(AUTO) 5.62 MIL/uL (4.5-6.0); WHITE BLOOD COUNT (AUTO) 5.3 K/uL (4.3-11.0)
--- NOTE | 2019-12-11 06:32 | NUR ---
311- 2 TELE/RN NOTES ATTENDED TO ALL NEED, MONITORED FOR SAFETY, ON IV ANTYIBIOTIC THERAPY,REPLACED MAGNESIUM. BED LOCKED, CALL LIGHTS WITHIN REACH. WILL ENDORSE TO AM RN FOR BLAYNE.
[2019-12-11 06:51] LABS: CREATININE 0.8 mg/dL (0.6-1.3); MAGNESIUM 2.6 mg/dL (1.8-2.4); PHOSPHORUS 2.6 mg/dL (2.5-4.9); POTASSIUM 3.2 mmol/L (3.5-5.1)
--- NOTE | 2019-12-11 07:32 | NUR ---
RN NOTES RECEIVED PATIENT IN BED RESTING COMFORTABLY IN MODERATE HIGH BACK REST. A/O X3. ON RA, TOLERATING WELL. NO SIGNS OF DISTRESS NOTED AT THIS TIME, IV FLUIDS RAC#18 WITH NS RUNNING @100ML/HR, PATENT AND INTACT. ON TELE MONITOR WITH CURRENT READING OF SR WITH HR OF 90'S. SAFETY MEASURES IN PLACE, BED IN LOWEST LOCKED POSITION, CALL LIGHTS WITHIN REACH, WILL CONTINUE TO MONITOR.
[2019-12-11 08:00] VITALS: BP 141/103
[2019-12-11] MEDS: FOLIC ACID 1 MG TABLET PO SCH (08:59)
[2019-12-11] MEDS: PANTOPRAZOLE 40 MG TABLET.DR PO SCH (08:59)
[2019-12-11] MEDS: THIAMINE HCL 100 MG TABLET PO SCH (08:59)
[2019-12-11 10:38] LABS: EOSINOPHILS % (MANUAL) 1 % (0-4); LYMPHOCYTES % (MANUAL) 16 % (16-48); MONOCYTES % (MANUAL) 3 % (0-11.0); NEUTROPHILS % (MANUAL) 80 (42-76)
[2019-12-11] MEDS ORDERED: LORAZEPAM INJ 2 MG/ML VIAL IV PRN (11:30)
--- NOTE | 2019-12-11 14:53 | NUR ---
RN NOTES PATIENT PULLED OUT HIS IV, INSERTED A NEW ONE AT RAC#20 BUT REFUSED IV FLUIDS AT THIS TIME, MD MADE AWARE. WILL CONTINUE TO MONITOR.
--- NOTE | 2019-12-11 19:00 | NUR ---
RN medsurg opening notes Received Pt from morning nurse. Pt is sitting in the bed comfortably. Pt is alert and orientedX3 and anxious. Pt speaks Bahraini and able to make needs known. Respiration is normal and unlabored. No SOB. No S/S of distress noted. IV sites at RAC # 20 is clean, intact and flush without resistance. Pt refused to have IV fluids. Made aware risks and benefits. Pt keep refusing. Sitter at the bedside. Safety precautions is maintained. Seizure precautions is maintained. Bed at low position, brakes locked, side rails upX3 and padded, urinal at the bed side and call light is within reach. Will continue to monitor.
--- NOTE | 2019-12-11 19:23 | NUR ---
RN NOTES PATIENT IN BED RESTING COMFORTABLY IN MODERATE HIGH BACK REST. A/O X2. SITTER AT BEDSIDE. ON RA, TOLERATING WELL, IV FLUIDS RAC#18 WITH NS RUNNING @100ML/HR, PATENT AND INTACT. PATIENT REFUSED IV FLUIDS, EXPLAINED RISKS AND BENEFITS BUT PATIENT STILL REFUSED. SAFETY MEASURES IN PLACE, BED IN LOWEST LOCKED POSITION, CALL LIGHTS WITHIN REACH, WILL ENDORSE TO ENERGY CONTROL OFFICER NURSE FOR BLAYNE.
[2019-12-11 20:00] VITALS: BP 147/67
--- NOTE | 2019-12-11 21:34 | NUR ---
JORGE ALBERTO medsurcorrine notes Pt is having insomnia. Administered ambien 5 mg/1 tab/po as ordered for sleeping per Pt request. Sitter at the bed side. Safety precautions is maintained. Will continue to monitor.
[2019-12-12] MEDS: CHLORDIAZEPOXIDE HCL 25 MG CAPSULE PO SCH ×3 (04:15→21:17)
--- NOTE | 2019-12-12 05:00 | NUR ---
RN medsurg notes Pt accidentally pulled out IV sites at RAC. Inserted new IV sites at R hand# 24 with good blood returned. New IV sites is clean, patent and flush without resistance. Pt tolerated activity well. Will continue to monitor.
--- NOTE | 2019-12-12 06:45 | NUR ---
RN medsurg closing notes Pt is resting in the bed comfortably. Pt is alert and orientedX3. Pt speaks Wolof and able to make needs known. Respiration is normal and unlabored. No SOB. No S/S of distress noted. VS is stable. Afebrile. Routine meds were given as ordered. IV sites at R hand # 24 is clean, intact and flush without resistance. Sitter at the bedside. Safety precautions is maintained. Seizure precautions is maintained. Bed at low position, brakes locked, side rails upX3 and padded, urinal at the bed side and call light is within reach. Will endorse to morning nurse for BLAYNE.
--- NOTE | 2019-12-12 07:27 | NUR ---
MS RN OPENING NOTES RECEIVED PATIENT IN BED, AWAKE, A/O X2 AND ACTIVE; WANTS TO GET OUT OF BED ALL THE TIME. PATIENT IS ON ROOM AIR; BREATHING IS EVEN AND UNLABORED, NO SOB NOTED AT THIS TIME. NO COMPLAINS OF PAIN AT THIS TIME. R HAND IV ACCESS G # 24 PRESENT AND INTACT; PATIENT REFUSES FLUID INFUSION. SITTER AT BEDSIDE. SAFETY PRECAUTIONS IN PLACE; BED IN LOW POSITION AND LOCKED, RAILS UP X2, SEIZURE PRECAUTIONS; CALL LIGHT WITHIN REACH. WILL CONTINUE TO MONITOR PATIENT.
[2019-12-12 08:49] LABS: CALCIUM, SERUM 8.5 mg/dL (8.5-10.1); CREATININE 1.2 mg/dL (0.6-1.3); POTASSIUM 3.1 mmol/L (3.5-5.1)
[2019-12-12] MEDS: FOLIC ACID 1 MG TABLET PO SCH (08:53)
[2019-12-12] MEDS: PANTOPRAZOLE 40 MG TABLET.DR PO SCH (08:54)
[2019-12-12] MEDS: THIAMINE HCL 100 MG TABLET PO SCH (08:54)
[2019-12-12] MEDS ORDERED: IV NS 0.9% 1,000 ML IV ONE (11:00)
--- NOTE | 2019-12-12 11:25 | NUR ---
MS RN NOTES PER DR Viridiana GARCIA STARTED IV BOLUS 500 NS
--- NOTE | 2019-12-12 18:36 | NUR ---
MS RN CLOSING NOTES PATIENT IN BED, AWAKE, A/O X2. PATIENT IS ON ROOM AIR; BREATHING IS EVEN AND UNLABORED, NO SOB NOTED AT THIS TIME. NO COMPLAINS OF PAIN THROUGHOUT SHIFT. LEFT FOREARM IV ACCESS G #22 PRESENT AND INTACT. SITTER AT BEDSIDE. ALL NEEDS ATTENDED TO THROUGHOUT THE DAY. SAFETY PRECAUTIONS IN PLACE; BED IN LOW POSITION AND LOCKED, RAILS UP X2, SEIZURE PRECAUTIONS UP; CALL LIGHT WITHIN REACH. WILL ENDORSE TO PROVIDER RELATIONS SPECIALIST NURSE.
--- NOTE | 2019-12-12 19:50 | NUR ---
RN NOTES RECEIVED PATIENT IN BED, AWAKE, ALERT ORIENTEDX2 AND ACTIVE; WANTS TO GET OUT OF BED ALL THE TIME. ASK EMBEDDED CASE MANAGER MARISSA TO TRANSLATE AND TALK TO PATIENT IN [place], THAT HE NEEDS TO STAY OVERNIGHT AND WITH A POSSIBILITY OF GOING HOME FOR DISCHARGE TOMORROW. PATIENT IS ON ROOM AIR; BREATHING IS EVEN AND UNLABORED, NO SOB NOTED AT THIS TIME. NO COMPLAINS OF PAIN AT THIS TIME. R HAND IV ACCESS G # 24 PRESENT AND INTACT; EMPHASIZED THE IMPORTANCE OF IVF HYDRATION, CHANDA HIGHTOWER LVN AT BEDSIDE. SAFETY PRECAUTIONS IN PLACE; BED IN LOW POSITION AND LOCKED, RAILS UP X2, SEIZURE PRECAUTIONS OBSERVED; CALL LIGHT WITHIN EASY REACH. ALL NEEDS ANTICIPATED. WILL CONTINUE TO MONITOR ACCORDINGLY.
[2019-12-12 23:19] LABS: URINE SODIUM, RANDOM < 5 mmol/l (40-220)
[2019-12-12 23:30] LABS: OSMOLALITY,URINE 339 mOS/kg (340-1090)
[2019-12-13] MEDS: CHLORDIAZEPOXIDE HCL 25 MG CAPSULE PO SCH ×2 (05:40→12:26)
[2019-12-13] MEDS: IV NS 0.9% 1,000 ML IV PRN (06:15)
--- NOTE | 2019-12-13 06:59 | NUR ---
RN NOTES ALL NEEDS ATTENDED AND MET, ABLE TO REST AND SLEPT AT INTERVALS, KEPT CLEAN WARM DRY AND COMFORTABLE, SITTER AT BEDSIDE THROUGHOUT THE NIGHT. NO SIGNIFICANT CHANGE OF CONDITION. COOPERATES WITH NURSING CARE. SAFETY MEASURES IN PLACE, HAD BMX1 AT 0700 AND VOIDED X2. ENDORSED TO AM NURSE FOR CONTINUITY OF CARE.
[2019-12-13 07:12] LABS: CALCIUM, SERUM 7.8 mg/dL (8.5-10.1); MAGNESIUM 1.8 mg/dL (1.8-2.4); PHOSPHORUS 2.3 mg/dL (2.5-4.9); POTASSIUM 3.2 mmol/L (3.5-5.1)
--- NOTE | 2019-12-13 07:20 | NUR ---
rn notes received patient on room air, no sob noted, patient denies pain at this time. Kyrgyz speaking only. LFA 22 NS @ 100 ml per hour. Possible DC today. Sitter d/c'd, had 1 BM a few minutes ago. Bed at the lowest setting, call light within reach, side rails up x2
[2019-12-13 08:00] VITALS: BP 118/79
[2019-12-13 08:27] LABS: THYROID STIMULATING HORMONE 0.77 uIU/mL (0.358-3.74); URIC ACID 6.9 mg/dL (2.6-7.2)
[2019-12-13] MEDS: THIAMINE HCL 100 MG TABLET PO SCH (08:46)
[2019-12-13] MEDS: FOLIC ACID 1 MG TABLET PO SCH (08:46)
[2019-12-13] MEDS: PANTOPRAZOLE 40 MG TABLET.DR PO SCH (08:46)
[2019-12-13] MEDS ORDERED: POTASSIUM CHLORIDE 20 MEQ TAB.PRT.SR PO ONE (10:30)
[2019-12-13] MEDS ORDERED: K PHOS NEUTRAL 250 MG TABLET PO ONE (12:00)
[2019-12-13 16:00] VITALS: BP 127/77
--- NOTE | 2019-12-13 18:24 | NUR ---
rn notes patient dc'd at this time. IV lines removed. no photos needed. picked up by family member. NOthing is missing from his belongings. CW gave information for alcohol addiction resources. Patient educated about the importance of not drinking alcohol.
== END 2019-12-13 18:00 | disposition home or self-care (01) | DRG 775 ==
LOC: ER 17:52 → TELE 20:08 → MED 12-11 10:43
PROVIDERS: ADMIT Nurse Practitioner Acute Care; ATTEND Nurse Practitioner Acute Care
DX: F10.239 Alcohol dependence with withdrawal, unspecified (principal); G40.509 Epileptic seizures related to external causes, not intractable, without status epilepticus; E86.0 Dehydration; E87.1 Hypo-osmolality and hyponatremia; E87.6 Hypokalemia; D69.59 Other secondary thrombocytopenia; E83.42 Hypomagnesemia; E83.51 Hypocalcemia; R74.0 Nonspecific elevation of levels of transaminase and lactic acid dehydrogenase [LDH]; D69.6 Thrombocytopenia, unspecified; E51.2 Wernicke's encephalopathy; Y90.0 Blood alcohol level of less than 20 mg/100 ml; R73.9 Hyperglycemia, unspecified
CPT/HCPCS: 36415; 71045-TC; 80048-TC; 80061-TC; 80076-TC; 80305; 83735-TC; 83935-TC; 84100-TC; 84300-TC; 84443-TC; 84550-TC; 85025-TC; 85730-TC; 87081-TC; G0378; G0480; J2060; J2405; J3475; J7030; J7040